=== PATIENT | female | born 1955 | race Caucasian/White ===

== ENCOUNTER 2021-10-25 19:55 | Emergency (ER) | payer MEDICARE, OTHER ==
[~2021-10-25] VITALS: Ht 160 cm; Wt 58.1 kg
[~2021-10-25 19:55] MED LIST: CODGUAEL PO; K-Dur10 MEQ PO; Lasix40 MG PO; Zofran Odt4 MG SL
[2021-10-25] MEDS ORDERED: CARVEDILOL ER20 MG PO (21:51)
[2021-10-25] MEDS ORDERED: K-Dur10 MEQ PO (21:51)
[2021-10-25] MEDS ORDERED: SPIR25 PO (21:51)
[2021-10-25] MEDS ORDERED: ELIQUIS5 M2 PO (21:51)
[2021-10-25] MEDS ORDERED: Lasix20 MG PO (21:51)
[2021-10-25] MEDS ORDERED: Crestor20 MG PO (21:51)
== END 2021-10-25 22:10 | disposition home or self-care (01) ==
LOC: ER 19:55
DX: Z76.0 Encounter for issue of repeat prescription (principal); E78.5 Hyperlipidemia, unspecified; I10 Essential (primary) hypertension; Z79.899 Other long term (current) drug therapy; Z79.01 Long term (current) use of anticoagulants
CPT/HCPCS: 99281